=== PATIENT | female | born 1930 | race Caucasian/White ===

== ENCOUNTER → 2016-09-04 | Outpatient (CLI) | payer MEDICARE, OTHER ==
[2016-09-04 11:10] VITALS: BP 103/61
== END ==
LOC: MHUC 10:06
PROVIDERS: ATTEND Physician Assistant
DX: Z76.0 Encounter for issue of repeat prescription (principal)
CPT/HCPCS: 99212

== ENCOUNTER → 2016-10-04 | Outpatient (CLI) | payer MEDICARE, OTHER ==
[~2016-10-04] MED LIST: ROPIVACAINE 1% 10 MG/ML (NAROPIN) 10 ML AMPUL ONE; SODIUM CHLORIDE VIAL (PF) 10 ML IV ONE; methylPREDNISolone 80 MG/ML (DEPO MEDROL) VIAL IM ONE
== END ==
LOC: PMC 13:15
PROVIDERS: ATTEND Family Medicine
PROC: 3E0233Z Introduction of Anti-inflammatory into Muscle, Percutaneous Approach (ICD-10-PCS; principal; 2016-10-04)
PROC: 3E023BZ Introduction of Anesthetic Agent into Muscle, Percutaneous Approach (ICD-10-PCS; 2016-10-04)
DX: M54.5 Low back pain (principal)

== ENCOUNTER → 2016-10-26 | Outpatient (CLI) | payer MEDICARE, OTHER ==
[~2016-10-26] MED LIST changes: -ROPIVACAINE 1% 10 MG/ML (NAROPIN) 10 ML AMPUL ONE; -SODIUM CHLORIDE VIAL (PF) 10 ML IV ONE
== END ==
LOC: PMC 13:51
PROVIDERS: ATTEND Family Medicine
DX: M48.06 Spinal stenosis, lumbar region (principal); Z79.02 Long term (current) use of antithrombotics/antiplatelets
CPT/HCPCS: 62322; J1040

== ENCOUNTER → 2016-12-09 | Outpatient (CLI) | payer MEDICARE, OTHER ==
[~2016-12-09] MED LIST changes: +ACYC400T PO; +CHOL2000 PO; +GINK60TA2 PO; +HYDR-33; +IBUP200C PO; +LSNP10T PO; +LSNP20T; +MELO-249; +MIRT15TA98; +PREN-94 PO; +RIVA20TA PO; +SERT50TA2 PO; +SPRN25T; +SRTR100T; +TERB250T10; +THIA50TA PO; -methylPREDNISolone 80 MG/ML (DEPO MEDROL) VIAL IM ONE
== END ==
LOC: EMS 15:20
DX: R42 Dizziness and giddiness (principal); R41.82 Altered mental status, unspecified